=== PATIENT | male | born 1990 | race Caucasian/White ===

== ENCOUNTER 2017-12-10 15:35 | Emergency (ER) | payer OTHER ==
--- NOTE | 2017-12-10 15:45 | CPEKG ---
Heart Rate: 69 RR Interval: 870 P-R Interval: 136 QRSD Interval: 98 QT Interval: 404 QTC Interval: 433 P Felt: 74 QRS Felt: -12 T Wave Felt: 45 EKG Severity - NORMAL ECG - EKG Impression: SINUS RHYTHM Electronically Signed By: Alfred Zeng 10-Dec-2017 19:43:21
--- NOTE | 2017-12-10 15:50 | EDPHY ---
H & P Time Seen by Provider: 12/10/17 15:40 HPI/ROS: Chief complaint. Palpitations and chest pain HPI. 27-year-old male presents emergency department with chest pain and palpitations began at 3:00 p.m. About 1 hr ago. He was having lunch and had 2- 3 seconds of sharp left-sided chest pain without radiation. He had no shortness of breath. He has no symptoms now and it resolved after 2-3 seconds. He also had altered sensation to the left arm for 1-2 minutes and this has resolved. There was no weakness. He had a sense of palpitations or skipped beats. He felt like he was lightheaded and dizzy. No shortness of breath. No fever cough. He is wearing an event monitor for workup for some type of fast rhythm possibly SVT. He has no symptoms now. ROS Constitutional. no fever/chills, no weakness Eyes. no problems with vision ENT. no sore throat, no nasal drainage Cardiovascular. Sharp left-sided chest pain Respiratory. no shortness of breath, no cough Abdominal. no abdominal pain, no nausea/vomiting, no diarrhea . no problems urinating MS. no calf pain/swelling, no neck/back pain, no joint pain Skin. no rash Lymph. no swollen glands Neuro. Dizziness and lightheaded; 1-2 minutes altered sensation left arm without weakness Past Medical/Surgical History: Healthy No family history of early coronary artery disease Social History: , nonsmoker, no alcohol Smoking Status: Never smoked Physical Exam: General Appearance: Alert well-developed male mild distress vital signs are stable Eyes: Pupils equal and round no pallor or injection. ENT, Mouth: Mucous membranes are moist. Respiratory: There are no retractions, lungs are clear to auscultation. Cardiovascular: Regular rate and rhythm. Gastrointestinal: Abdomen is soft and nontender, no masses, bowel sounds normal. Neurological: Awake and alert, sensory and motor exams grossly normal. Skin: Warm and dry, no rashes. Musculoskeletal: Neck is supple nontender. Extremities symmetrical, full range of motion. Psychiatric: Patient is oriented X 3, there is no agitation. Constitutional: Initial Vital Signs Temperature (C) 36.5 C 12/10/17 15:36 Heart Rate 76 12/10/17 15:36 Respiratory Rate 18 12/10/17 15:36 Blood Pressure 125/88 H 12/10/17 15:36 O2 Sat (%) 97 12/10/17 15:36 O2 Delivery Mode Room Air Allergies/Adverse Reactions: No Known Allergies Allergy (Unverified 12/10/17 15:36) Home Medications: Medication Instructions Recorded NK [No Known Home Meds] 12/10/17 Medical Decision Making - Diagnostics EKG Interpretation: EKG interpreted by me shows normal sinus rhythm normal interval and axis. QRS is normal there is no significant ST elevation or depression. There is no arrhythmia. The rate is 69 Procedures: IV normal saline, monitor ED Course/Re-evaluation: Re-evaluation 5:00 p.m. Patient is stable and no symptoms. He and I discussed laboratory and EKG evaluation. We discussed treatment plan including recommendation for 1 more troponin. He expresses understanding and agreement Patient has been on a monitor and there has been no ectopy Repeat troponin is negative Re-evaluation 6:00 p.m.. Patient and I discussed laboratory evaluation, treatment plan including criteria for return importance of follow-up and further evaluation. He expresses understanding and agreement Differential Diagnosis: Patient is being evaluated for tachy dysrhythmia in wearing event monitor. There has been no ectopy here. No evidence for acute coronary syndrome. - Data Points Laboratory Results: Laboratory Results 12/10/17 15:45 12/10/17 15:45 12/10/17 12/10/17 12/10/17 17:18 15:53 15:45 WBC RBC Hgb Hct MCV MCH MCHC RDW Plt Count MPV Neut % (Auto) Lymph % (Auto) [place] % (Auto) Eos % (Auto) Baso % (Auto) Nucleat RBC Rel Count Absolute Neuts (auto) Absolute Lymphs (auto) Absolute Monos (auto) Absolute Eos (auto) Absolute Basos (auto) Absolute Nucleated RBC Immature Gran % Immature Gran # Sodium 143 mEq/L mEq/L (135-145) Potassium 4.1 mEq/L mEq/L (3.3-5.0) Chloride 105 mEq/L mEq/L (97-110) Carbon Dioxide 25 mEq/l mEq/l (22-31) Anion Gap 13 mEq/L mEq/L (8-16) BUN 13 mg/dL mg/dL (7-23) Creatinine 1.0 mg/dL mg/dL (0.7-1.3) Estimated GFR > 60 Glucose 94 mg/dL mg/dL (70-100) Calcium 10.1 mg/dL mg/dL (8.5-10.4) POC Troponin I 0.00 ng/mL ng/mL 0.00 ng/mL ng/mL (0.00-0.08) (0.00-0.08) 12/10/17 15:45 WBC 7.70 10^3/uL 10^3/uL (3.80-9.50) RBC 5.22 10^6/uL 10^6/uL (4.40-6.38) Hgb 15.7 g/dL g/dL (13.7-17.5) Hct 45.1 % % (40.0-51.0) MCV 86.4 fL fL (81.5-99.8) MCH 30.1 pg pg (27.9-34.1) MCHC 34.8 g/dL g/dL (32.4-36.7) RDW 11.9 % % (11.5-15.2) Plt Count 248 10^3/uL 10^3/uL (150-400) MPV 10.2 fL fL (8.7-11.7) Neut % (Auto) 65.4 % % (39.3-74.2) Lymph % (Auto) 20.6 % % (15.0-45.0) [place] % (Auto) 9.2 % % (4.5-13.0) Eos % (Auto) 3.9 % % (0.6-7.6) Baso % (Auto) 0.6 % % (0.3-1.7) Nucleat RBC Rel Count 0.0 % % (0.0-0.2) Absolute Neuts (auto) 5.03 10^3/uL 10^3/uL (1.70-6.50) Absolute Lymphs (auto) 1.59 10^3/uL 10^3/uL (1.00-3.00) Absolute Monos (auto) 0.71 10^3/uL 10^3/uL (0.30-0.80) Absolute Eos (auto) 0.30 10^3/uL 10^3/uL (0.03-0.40) Absolute Basos (auto) 0.05 10^3/uL 10^3/uL (0.02-0.10) Absolute Nucleated RBC 0.00 10^3/uL 10^3/uL (0-0.01) Immature Gran % 0.3 % % (0.0-1.1) Immature Gran # 0.02 10^3/uL 10^3/uL (0.00-0.10) Sodium Potassium Chloride Carbon Dioxide Anion Gap BUN Creatinine Estimated GFR Glucose Calcium POC Troponin I Medications Given: Discontinued Medications Sodium Chloride (Ns) 1,000 mls @ 0 mls/hr IV EDNOW ONE; Wide Open PRN Reason: Protocol Stop: 12/10/17 16:03 Last Admin: 12/10/17 16:16 Dose: Not Given Point of Care Test Results: Chemistry 12/10/17 12/10/17 17:18 15:53 POC Troponin I 0.00 ng/mL ng/mL 0.00 ng/mL ng/mL (0.00-0.08) (0.00-0.08) Departure - Departure Disposition: Home, Routine, Self-Care Clinical Impression: Palpitations Condition: Good Instructions: Heart Palpitations (ED) Additional Instructions: Regular activity. Return for worsening symptoms. Follow-up with [place] to continue your workup and evaluation Referrals: NONE *PRIMARY CARE P,. [Primary Care Provider] - As per Instructions
[2017-12-10] MEDS ORDERED: NS 1,000 ML IV ONE (16:02)
[2017-12-10 16:18] LABS: PLATELET COUNT 248 10^3/uL (150-400)
[2017-12-10 18:13] VITALS: BP 120/80
== END 2017-12-10 18:13 | disposition home or self-care (01) ==
DX: R00.2 Palpitations (principal)
CPT/HCPCS: 84484-PO